=== PATIENT | female | born 1995 | race Caucasian/White ===

== ENCOUNTER → 2017-08-18 16:55 | Outpatient (CLI) | payer MEDICAID, SELFPAY ==
[2017-08-18 22:10] LABS: Group B Strep DNA By PCR Negative (Negative); Internal Control PASS; Probe Check PASS; Specimen Processing Control PASS
== END ==
PROVIDERS: Visit Provider Obstetrics & Gynecology
DX: Z36.85 Encounter for antenatal screening for Streptococcus B (principal)
CPT/HCPCS: 87081; 87653

== ENCOUNTER 2017-09-05 15:35 | Outpatient (CLI) | payer MEDICAID, SELFPAY ==
[2017-09-05 16:02] VITALS: BMI 29.0
[2017-09-05 16:36] LABS: ROM Internal Control Test YES-OK TO RESULT pt. (Internal QC); ROM Patient Test Negative (Negative)
--- NOTE | 2017-09-06 04:19 | OB.TRI.NOTE ---
History of Present Illness Date of Service: 09/05/17 Was patient seen by the physician?: No Reason For Visit: R/O LABOR Date of Service: 09/05/17 Final ALLYN Source: US <20 weeks Gestational age: 39 weeks History of Present Illness: 39 week intrauterine reports with complaints of contractions and unsure if spontaneous rupture of membranes. Contractions every 7 minutes. Repeat scheduled for September 06. Home Medications Medication Instructions Recorded Pnv No.122/Iron/Folic Acid 1 each PO DAILY 02/23/17 [ Multi Tablet] Ranitidine HCl [Zantac 75] 75 mg PO DAILY 08/31/17 Allergies No Known Allergies Allergy (Verified 08/31/17 14:05) NST - FHR Rate Baby A NST Reactive:: Yes Impression/Plan Approximately 39 week intrauterine with false labor. ROM test negative. Reactive nonstress test. No cervical change after observation. Will discharge to home.
== END 2017-09-05 17:05 | disposition home or self-care (01) ==
LOC: WPOUT 16:00 → WP 16:01
PROVIDERS: Visit Provider Obstetrics & Gynecology
DX: O47.1 False labor at or after 37 completed weeks of gestation (principal); Z3A.39 39 weeks gestation of pregnancy
CPT/HCPCS: 59025; 59050; 84112; 99218; G0378

== ENCOUNTER 2017-09-06 05:13 | Inpatient (IN) | payer MEDICAID, SELFPAY ==
[2017-08-31 13:28] VITALS: BMI 29.2
[2017-09-06] VITALS (23 sets, daily range): BP systolic 99–117; BP diastolic 42–76; PULSE 63–100; RESP 16–18; TEMP 36.2–36.8; O2SAT 96–100
[2017-09-06] MEDS: Lactated Ringers 1,000 ML 999 ML IV (05:30)
[2017-09-06 06:19] LABS: Absolute Neutrophil Count 7.6 X10^3/uL (2.0-7.7); Basophil# 0.01 X10^3/uL; Basophil% 0.1 % (0-1); Eosinophil# 0.12 X10^3/uL; Eosinophils% 1.1 % (0-5); Hematocrit 38.1 % (37-47); Hemoglobin 12.7 g/dl (12.0-15.0); Mean Corp Hgb Conc 33.3 g/gl (32-36); Mean Corpuscular Hgb 27.7 pg (27.0-32.0); Mean Platelet Vol. 8.4 fl (6.2-12.0); Monocyte# 0.79 X10^3/uL; Monocyte% 7.2 % (0-10); Neutrophil % 69.5 % (47-70); Platelet Count 180 K/mm3 (150-450); RBC Distribution Width CV 13.7 % (11.6-14.6); RBC Distribution Width SD 41.3 fl (35.1-43.9); Red Blood Count 4.59 M/mm3 (4.2-5.4); White Blood Count 10.9 K/mm3 (4.4-11.0)
[2017-09-06 06:20] LABS: POSITIVE COUNT NO; POSITIVE DIFFERENTIAL NO; POSITIVE MORPHOLOGY NO
[2017-09-06] MEDS: Lactated Ringers 1,000 ML 150 ML IV (06:28)
[2017-09-06] MEDS: Sodium Citrate/Citric Acid 30 ML UDC PO (06:28)
[2017-09-06] MEDS: Cefazolin 2 GM in 0.9% Normal Saline 100 ML IV (07:22)
--- NOTE | 2017-09-06 07:26 | OP.PCM_ITS ---
Operative Report Date of Procedure: 09/06/17 Surgeon: Abelardo Marcelo MD, FACOG Welding Operator: BREANNE Ceja Anesthesia: Fransico Farrell MD Anesthesia: Spinal with Duramorph Pre-op Diagnosis: - -Prior Section Post-Op Diagnosis: - -Prior Section Procedure: Repeat Low Transverse Cervical Caesarean Section Findings: Viable male with Apgars of 8/9 in occiput anterior presentation with clear amniotic fluid and normal three-vessel placenta. Some small adhesions between the omentum and the anterior abdominal wall. Indication: This is a 22-year-old who presents for her third at 39+ weeks gestation. care has otherwise been uneventful except that the patient has a history of hepatitis C but her viral load is negative. The patient has been counseled regarding the risk and indications of this procedure including the possibility of bleeding infection and injury to surrounding structures such as bowel bladder. All questions were answered. Procedure: Patient was taken to the operating room where after spinal anesthesia was placed, the patient was prepped and draped in usual sterile fashion and a Walsh catheter was placed. The abdomen was entered through the patient's prior Pfannenstiel incision and peritoneum was entered bluntly. After developing a bladder flap on the lower uterine segment a low transverse incision was made on the uterus and head was easily delivered onto the operative field the nose mouth and oropharynx were bulb suctioned. Subsequently a viable male was born with Apgars of 8/9. The was noted to cry move all extremities vigorously on the operative field. The umbilical cord was doubly clamped and ligated and infant handed to the nursery personnel who were present for the delivery. Placenta was delivered and noted to be 3 vessels and normal. Uterus was exteriorized and remaining placental tissue was removed. The uterus was then closed in 2 layers first with running locked 0 Vicryl suture followed by a second imbricating layer with 0 Vicryl suture. 0 Vicryl suture was then used in a horizontal mattress interrupted fashion to affect final hemostasis of the uterine incision line. Normal fallopian tubes and ovaries were visualized and the uterus was returned to the pelvis. Hemostasis was noted and rectus abdominis muscles were reapproximated in the midline with interrupted Number 0 Vicryl suture in a horizontal mattress fashion. Fascia was closed with running Number 1 PDS Strata fix suture. Subcutaneous tissue was irrigated with copious amouts of saline solution and then closed with running 3-0 Vicryl suture. Skin was closed with 4-0 monocryl suture in a running subcuticular fashion. Steri strips, telfa, and tape were placed across the incision. The patient tolerated the procedure well and was taken to the recovery room in satisfactory condition. Sponge, needle, and instrument counts were all reportedly correct. EBL was less than 500 cc. Ancef 2 gms IV was given prior to the procedure. Spicemen to Pathology: None Complications: None
--- NOTE | 2017-09-06 07:27 | DCINST_ITS ---
Discharge Diet: No Restrictions Discharge Activity: May not drive while taking narcotic pain medications., May Shower, May Take a Tub Bath May resume sexual activity in: 4-6 weeks Lifting Restrictions: 20 pounds Additional Activity Instructions:: Nothing in the vagina for 4-6 weeks. You may return to work/school in 6 weeks. Call your doctor if your incision/area has: Continuous Slow Oozing, Sudden Increased Bleeding, Increased Pain/ Swelling, Increased Redness, Foul Smelling Discharge Call your doctor if you observe: Fever of 101 or Higher, Inability to urinate, Inability to have a bowel movement, Using more than one pad per hour Additional Instructions: If you experience any of the following, contact your healthcare provider. * Bleeding that soaks a pad every hour for 2 hours * Unrelieved incision or abdominal pain * Swelling, redness, discharge or bleeding from your incision or episiotomy site * Your incision begins to separate * Problems urinating (including inability to urinate or burning while urinating) . * Visual changes * Severe headache * Flu-like symptoms * Pain or redness in one of both of your breasts * Pain, warmth, tenderness or swelling in your legs, especially the calf area * Frequent nausea and vomiting * Symptoms of depression or anxiety If you experience any of the following, call 911 or go to the nearest Emergency Room. * Chest pain * Problems breathing * Seizure activity * Partial or complete paralysis of a body part, slurred speech, weakness or drooping of the face, or a sudden inability to walk or hold your balance Allergies/Adverse Reactions: Allergies No Known Allergies Allergy (Verified 08/31/17 14:05) Medications to take at Discharge Pnv No.122/Iron/Folic Acid [ Multi Tablet] 1 each PO DAILY 02/23/17 Ranitidine HCl [Zantac 75] 75 mg PO DAILY 08/31/17 Docusate Sodium [Colace] 100 mg PO BID PRN PRN #60 cap 09/06/17 Oxycodone [Oxyir] 5 mg PO Q6H PRN PRN 7 Days #20 tab 09/06/17 The following prescriptions were given: Oxycodone [Oxyir] 5 mg PO Q6H PRN PRN 7 Days #20 tab PRN Reason: Severe Pain (-03/16) Docusate Sodium [Colace] 100 mg PO BID PRN PRN #60 cap PRN Reason: Constipation Follow-Up: Call to make an appointment with your doctor for an incision check in 1-2 weeks. You will also need a 6 week post- follow up appointment. Please Follow Up With: Abelardo Marcelo MD - [phone] When: Call to make an appointment for an incision check in 2 weeks. Primary Care Physician: Abelardo Marcelo MD [Primary Care Provider] -
[2017-09-06] MEDS: Oxytocin 30 units/NS 500 ml 30 UNITS/500 ML IV.SOLN 167 UNITS IV (07:40)
[2017-09-06 07:44] LABS: Amphetamine Urine VISTA NEGATIVE (<1000 ng/mL); Barbiturate Urine VISTA NEGATIVE (< 200 ng/mL); Benzodiazepine Urine VISTA NEGATIVE (< 200 ng/mL); Cocaine Urine VISTA NEGATIVE (< 300 ng/mL); Ecstacy Urine VISTA NEGATIVE (< 500 ng/mL); Methadone Urine VISTA NEGATIVE (< 300 ng/mL); PCP Urine VISTA NEGATIVE (< 25 ng/mL); THC Urine VISTA NEGATIVE (< 50 ng/mL); Vista UDS pH Range 7
[2017-09-06] MEDS: Lactated Ringers 1,000 ML 100 ML IV ×3 (08:00→20:00)
[2017-09-06] MEDS: Methylergonovine 0.2 MG/ML Ampul IM (09:29)
[2017-09-06] MEDS: Famotidine 20 MG Tablet 10 MG PO (10:02)
[2017-09-06] MEDS: Ketorolac 30 MG/ML Syringe IV ×2 (13:13→18:47)
[2017-09-06] MEDS: 0.9% Saline Lock 10 ML Syringe IV (13:13)
[2017-09-06] MEDS: Cefazolin 1 GM/50 ML BAG IV ×2 (14:59→23:00)
[2017-09-07] VITALS (7 sets, daily range): BP systolic 94–124; BP diastolic 53–63; PULSE 68–89; RESP 16–18; TEMP 36.1–36.8; O2SAT 96–98
[2017-09-07] MEDS: 0.9% Saline Lock 10 ML Syringe IV ×5 (00:47→20:25)
[2017-09-07] MEDS: Ketorolac 30 MG/ML Syringe IV ×4 (00:47→19:34)
[2017-09-07] MEDS: Acetaminophen 500 MG Tablet 1000 MG PO ×2 (03:48→12:22)
[2017-09-07] MEDS: Lactated Ringers 1,000 ML 100 ML IV (06:44)
[2017-09-07 08:16] LABS: Hematocrit 30.2 % (37-47); Mean Corp Hgb Conc 33.1 g/gl (32-36); Mean Corpuscular Hgb 28.2 pg (27.0-32.0); Mean Corpuscular Volume 85.1 fL (81-99); Mean Platelet Vol. 8.4 fl (6.2-12.0); Platelet Count 160 K/mm3 (150-450); RBC Distribution Width CV 13.7 % (11.6-14.6); RBC Distribution Width SD 41.5 fl (35.1-43.9); Red Blood Count 3.55 M/mm3 (4.2-5.4); Scan Indicated on CBC? Y/N NO; White Blood Count 10.3 K/mm3 (4.4-11.0)
[2017-09-07] MEDS: Famotidine 20 MG Tablet 10 MG PO (10:06)
--- NOTE | 2017-09-07 10:37 | NURSING ---
Pt c/o headache that becomes more severe when standing. Giving pain medication when able. Pt laying flat for relief. MD made aware, no new orders. Anesthesia made aware by Shweta MATRI and plan to evaluate pt. Pt and family aware of plan.
--- NOTE | 2017-09-07 11:56 | CASEMGMT ---
Social Work Received notice from bowling pin refinisher on 09-06-17 after morning huddle that this patient/mother of baby (MOB) would benefit from social work consult. Consult related to MOB reportedly living in a prison, maternal history of substance use, and baby to be have LEXX monitoring for reported first trimester drug use (heroin and cocaine). Chart has been reviewed. This signwriter familiar with MOB from previous delivery at [facility]. Presented to MOB's room. MOB sleeping soundly in room, even after delinquency prevention social worker knocked. MOB's mother, Viji present in room and rocking . Viji reports MOB has been having headaches and MOB just got to sleep. acetone recovery worker agreed to return later to talk with MOB. Plan: Social work to follow. Will attempt to see MOB at a later time, after MOB has gotten some rest. -GIN Austin, INDUSTRIAL X RAY OPERATOR
[2017-09-07] MEDS: Senna/Docusate Sodium 1 Tablet PO (13:28)
--- NOTE | 2017-09-07 15:00 | NURSING ---
Reviewed and agreed with Student RN charting.
[2017-09-07] MEDS: oxyCODONE 5 MG Tablet PO ×2 (15:06→20:32)
--- NOTE | 2017-09-07 17:00 | CASEMGMT ---
Social Work Note Labor and Delivery Unit Social Work Assessment completed. Refer to documentation below for further details. Date of Referral: 09-06-17 Referred By: Verbal consult from Dr. Joseph Reason for Referral: Mother of baby (JOLEEN) reportedly living in a correction, maternal history of substance use, and baby to be have LEXX monitoring for reported first trimester drug use (heroin and cocaine). Date of Intervention: 09/07/2017 Time of Intervention: 1430 History obtained from: Medical record and patient/MOB Household composition: JOLEEN hutson has lived at [facility] for the last 7-8 months, since February 2017. JOLEEN lives with other women going through substance use recovery. MOB plans to take , Catrachito Lawrence to this facility at time of . Patient's parent/guardian status: MOB reports uncertainty as to paternity of this . There is a name listed in the care record, Grant Parekh, though during this assessment MOB informs this freelance writer that Serg was just a name that came to MOB as a possibility. MOB reports however, that is really unsure to paternity. MOB denies any intent or desire to seek out paternity testing. MOB does have two older children who have the same father, Jake Platt. MOB reports to have no contact or involvement with Jake. Minor Children: Traci Platt (born 07/2013) Alejo Platt (born 08/29/2014) Catrachito. MOB reports Traci is in the permanent custody of paternal grandparents. MOB reports Traci has been with the grandparents since Traci was about 1 years old. MOB reports to have no contact with her daughter. MOB reports Alejo is in the temporary custody of MOBs sister. MOB reports has just filed a motion to get back custody of Alejo. MOB reports to see Alejo often, as Alejo lives with MOBs sister and MOBs mother/Alejos maternal grandmother. Medical History: JOLEEN G3, P2 to 3 after delivering this admission. MOB with care starting around 10 weeks gestation. born via repeat caesarian section. Infant born weighing 6 pounds 8 ounces. Apgars 8 and 9 at 1 and 5 minutes of life respectively. Educational Status: MOB completed through the 10th or 11th grade. MOB reports goal to get GED classes done before leaving [facility]. Financial Status: MOB reports to have aguilar assistance as this time. Infant Supplies: MOB reports to have needed supplies including bassinet, crib, car seat, swing, clothing, diapers, wipes, bottles, formula. Childcare/Caregiver(s): MOB plans to be primary caregiver, and when MOB goes to counseling or work MOB will either have MOBs mom or daycare assist with care of Catrachito. Transportation: MOB reports MOBs mom or Yani, a staff person at [facility], are biggest sports. MOB also has a counselor and a counselor at [facility]. Programs/Agencies Involved: [facility] for food, medical, and aguilar assistance. [facility]. [facility] for counseling and residential treatment (at [facility]). MOB reports on waiting list for [facility], anticipating will be approved in the next month or two. Children Services/Legal Issues: MOB denies current legal charges, but is on probation. care record indicates MOB was incarcerated in detention at one point during this . MOB denies any current or recent legal issues. MOB denies any current involvement with children services, reporting it has been a long time since MOB has had a case with children services. Record indicates history of children services related to marijuana use. MOB had a voluntary case during the time that Alejo was born. Behavioral Health Issues: MOB denies any history of depression, anxiety, or other mental health diagnosis. MOB denies any history of suicidal ideation, plan, or intent; denies past attempts. Talked with MOB about a [facility] about an ED visit indicating suicidal ideation. MOB reports was not suicidal at that time, that JOLEENs sister through [facility] was suicidal based on some comments MOB wrote but that in reality MOB was never suicidal. No reports or indication of any thoughts, plans, intent to harm others. MOB denies any depression history. Educated MOB to depression, touching on risk for such, encouraging MOB to talk with someone should symptoms arise. MOB with history of marijuana usage. 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 MOB denies alcohol use or abuse, meth use, or other illicit drug use history. MOB reports sober date is 12-30-2016. MOB reports stopped using right after finding about . MOB denies any use of medication assisted treatment, such as suboxone, to assist with recovery from heroin. MOB denies any caffeine use. MOB reports one pack per day of tobacco during this . MOB with negative drug screens on 02-15-17 and 09-06-17. Babys urine is negative. Meconium is pending. Highest LEXX score so far a 5. Family/Social Stressors: MOB a single mother, non-custody of older 2 children, currently living in a residential treatment facility for substance use/abuse issues. Father of is unknown. MOB has just filed a motion to get custody back of 2nd child, but has no contact with oldest child. Support Systems: MOB reports that MOBs mom Viji Oleary is a strong support, as well as Yani from [facility]. MOB reports counselor Katia at [facility] is another support. ASSESSMENT: MOB cooperative with social work visit, conversing with social work job titles, giving to the point answers initially. MOB did expand on some answers as conversation went on, though usually when not directly related to children/custody issues. For example, MOB spontaneously shared intent to get GED, and plan to stay at [facility] until able to secure an apartment; social work had to ask direct and pointed questions about change of custody, which MOB did answer without issue. MOB was cooperative overall. MOB with fair eye contact, often looking away from social work job titles. Important to note that MOB does report to have a headache, so has not been feeling well today. MOB affect constricted, would smile, but not much range in emotion shown. MOB denies a depressed mood, reports to be happy about the baby, to love the baby, and to feel a connection. MOB did smile when talking about the baby. MOB did hold the baby when baby started to cry, though social work job titles picked baby up as MOB has not been out of bed today due to the headache. Overall, MOB reports to have needed supplies to care for infant, to have support at home going, and that has been in close contact with [facility] about plans for discharge. granite worker inquired whether this freelance writer needs to contact [facility], but MOB reports has been in close contact so no need indicated for social work to assist at this time. PLAN: MOB and baby continue with hospitalization. Baby is getting LEXX scoring due to reports of first trimester use of drugs. Will continue to follow this family during hospital stay. MOB was given a general resources list of social service agencies assisting with parent support, counseling, and in-kind help. MOB given handouts on Help Me Grow, Moms support group, tips on soothing baby/shaken baby prevention, and safe sleeping. -MARYLIN Austin, FILTER PLANT OPERATOR
--- NOTE | 2017-09-07 19:17 | PCM.PN.OB ---
Subjective: Patient without complaints. Tolerating diet well. Positive flatus. Has a spinal headache. Pain well controlled otherwise. - Physical Exam Vital Signs AF, VSS Temp Pulse Resp BP Pulse Ox 98.2 F 79 18 102/56 L 97 09/07/17 14:55 09/07/17 14:55 09/07/17 14:55 09/07/17 14:55 09/07/17 14:55 Oxygen Delivery Method Room Air Weight: 164 lb 14.492 oz Body Mass Index (BMI) 29.2 Intake and Output for Last 24 Hours 09/05/17 09/06/17 09/07/17 23:59 23:59 23:59 Intake Total 5252 / 5252 2680 / 2680 Output Total 1450 / 1450 2125 / 2125 Balance 3802 / 3802 555 / 555 Laboratory Tests Past 24 Hrs 09/07/17 07:50 WBC 10.3 RBC 3.55 L Hgb 10.0 L Hct 30.2 L MCV 85.1 MCH 28.2 MCHC 33.1 RDW 13.7 RDW Differential 41.5 Plt Count 160 MPV 8.4 Wound is clean, dry, intact. Good urine output. Hemoglobin okay. Medical Necessity - Tobacco Use Smoking Status: Current some day smoker Assessment/Plan Doing well. Continuing present care. Anesthesia aware of spinal headache and anticipate blood patch tomorrow if condition continues.
[2017-09-07] MEDS: Lactated Ringers 1,000 ML 999 ML IV (20:26)
--- NOTE | 2017-09-07 21:18 | NURSING ---
This RN has not observed interaction between mother and infant. Infant in crib in corner of room and patient's mother tends to when cries. At 2030 when this RN medicating patient, began crying and this RN asked if had recently eaten. Patient's mother stated that he had and she would let him cry a little harder before picking him up.
[2017-09-08] MEDS: oxyCODONE 5 MG Tablet PO ×3 (00:33→14:08)
--- NOTE | 2017-09-08 01:35 | NURSING ---
Late entry: At 2214, Dr. Farrell in room to do blood patch. Blood patch drawn by this RN and then given by Dr. Farrell at 2223. Pt tolerated procedure well. One hour post procedure, patient states that she feels so much better.
[2017-09-08 02:24] VITALS: BP 102/62; PULSE 70; RESP 16; TEMP 36.2
[2017-09-08] MEDS: 0.9% Saline Lock 10 ML Syringe IV ×2 (02:27→08:10)
[2017-09-08] MEDS: Ketorolac 30 MG/ML Syringe IV ×2 (02:27→08:11)
--- NOTE | 2017-09-08 04:57 | NURSING ---
Dr. Farrell notified that patient states that headache has returned after feeling better from blood patch. orders received.
[2017-09-08] MEDS: Acetaminophen/Butalbital/Caffe 1 Tablet 2 TABLET PO ×4 (05:10→21:16)
[2017-09-08] MEDS: Caffeine 200 MG Tablet 400 MG PO (05:12)
[2017-09-08 08:17] VITALS: BP 123/84; PULSE 71; RESP 18; TEMP 36.3; O2SAT 98
--- NOTE | 2017-09-08 09:51 | PCM.PN.OB ---
Subjective: Patient without complaints. Tolerating diet well. Positive flatus. Headache much better after anesthesia placed blood patch. Needing some Fioricet to help with her headaches. - Physical Exam Vital Signs AF, VSS Temp Pulse Resp BP Pulse Ox 97.4 F L 71 18 123/84 H 98 09/08/17 08:17 09/08/17 08:17 09/08/17 08:17 09/08/17 08:17 09/08/17 08:17 Oxygen Delivery Method Room Air Weight: 164 lb 14.492 oz Body Mass Index (BMI) 29.2 Intake and Output for Last 24 Hours 09/06/17 09/07/17 09/08/17 23:59 23:59 23:59 Intake Total 5252 / 5252 2680 / 2680 Output Total 1450 / 1450 2125 / 2125 Balance 3802 / 3802 555 / 555 Medical Necessity - Tobacco Use Smoking Status: Current some day smoker Assessment/Plan Doing well. Will release to home with routine instructions if baby is able to go.
[2017-09-08] MEDS: Senna/Docusate Sodium 1 Tablet PO (10:32)
[2017-09-08] MEDS: Famotidine 20 MG Tablet 10 MG PO (12:59)
[2017-09-08 13:30] VITALS: BP 113/78; PULSE 73; RESP 16; O2SAT 96
--- NOTE | 2017-09-08 16:16 | CASEMGMT ---
Social Work Labor and Delivery Unit Summary: Per report from registration coordinator mother of baby (MOB) upset today regarding LEXX protocol and baby not being up for discharge today. MOB upset as baby had a high LEXX score overnight. Received call from MOB's case resolution specialist at [facility], Yani Palumbo. Yani advocating for MOB, relaying that MOB has been doing well with the [facility] program, all drug screens have come back negative since entering [facility], and staff have not had any issues/concerns with MOB's behaviors or interactions, that MOB has been appropriate each time MOB has left on a pass and returned. Yani reports MOB rarely goes on passes, and most passes are to go and see MOB's older son. Yani reports plan to come to hospital later today to see MOB, and Yani confirms that will provide MOB transportation home. Yani also confirms that needed supplies are in place for baby at discharge to [facility]. This data analyst report writer went to MOB's room to see how MOB is doing. MOB reports Okay, I guess. MOB clarifies that is not happy about staying longer or the baby receiving a high LEXX score, but also voiced understanding that people are doing jobs, and that MOB cannot change the protocols. MOB hopeful that will be able to discharge tomorrow. MOB reports is just trying to accept information given and move on. MOB discussed frustrations with feeling like being judged at times, but also acknowledges that this is MOB's personality to be guarded and suspicious of others intentions. MOB discussed that does not like to share so many personal details with staff, that MOB understands as a social services analyst this data analyst report writer has to ask personal questions but MOB does not believe other staff have the right to ask MOB personal questions. This data analyst report writer attempted to explore that some conversation with other staff could be to help build rapport and connections, but if MOB does not want to talk about such issues then MOB can voice this to staff and try to work through this. MOB discussed that feels MOB would not be nice, so choosing not to speak up and be assertive. MOB voiced that knows needs to work on being assertive, but also knows self and usually needs to calm down before speaking, or may say something MOB would regret later. MOB voiced appreciation for being heard and allowed to vent frustrations. MOB apologized to this data analyst report writer for not being real talkative yesterday, but MOB acknowledged that was suspicious of this data analyst report writer and whether this data analyst report writer would twist MOB's words around. At the end of conversation, MOB denies any needs or concerns at present, and hopeful that tomorrow baby will be okay to discharge. Assessment: MOB maintains that has not used any drugs since December 2016 and is having a hard time understanding why baby had a high score overnight, other than baby was being a normal baby and having a hard moment. MOB listened respectfully when social services analyst educated to protocols and standardization of testing and LEXX scoring, that babies do have fluctuations of scores and this is in part why scoring is done over time rather than making decisions based on one or two scores. There have been no positive drug screens this write can appreciate during this or at delivery. [facility] staff report that all of MOB's drugs screens have been negative, that staff have had no concerns with MOB while a client in the treatment program. [facility] staff confirms that MOB has needed supplies for baby at [place]. MOB more talkative today as compared to yesterday. MOB held good eye contact, did not turn away from social services analyst when subject of older children were broached. MOB did acknowledge that doesn't like to talk about details of other children, to which this data analyst report writer informed MOB this was quite clear to this data analyst report writer based on MOB's reactions and body language yesterday. MOB with appropriate affect, though mood irritable based on MOB spending most of the time talking about frustrations. Motor activity and speech within normal limits. MOB showed this data analyst report writer a picture of older son Alejo, as well as more willing to talk about paternity questions regarding baby. MOB held baby in a cradle hold, rocked baby intermittently and when baby was sleeping for some time placed baby in the crib. MOB was gentle and appropriate in mannerisms with baby. MOB able to identify support people whom MOB trusts and can talk to for support, including Yani at [facility] and [facility]'s sponsor. MOB thanked this data analyst report writer for being present today when MOB did not having anyone else to talk to, though MOB admits to still have reservations about this data analyst report writer (and all staff), but that did trust this data analyst report writer with the information that MOB was willing to talk about today. Interventions: Supportive listening and reflection offered. Validation of feelings and education on why protocols in place. Explored support systems MOB has in place. Updated Dr. Peterson to this data analyst report writer's conversation with [facility] staff, that reports have been positive and supporting MOB's assertion of nonusage since MOB's time at [facility]. Plan: MOB and infant to discharge to [facility] where MOB will have support from counselors and case management. Will continue monitoring for meconium drug screen results. -GIN Austin, FORGEMAN HELPER
[2017-09-08] MEDS: Ibuprofen 600 MG Tablet PO (19:43)
[2017-09-08 19:48] VITALS: BP 117/87; PULSE 63; RESP 18; TEMP 36.4; O2SAT 99
[2017-09-09] VITALS (14 sets, daily range): BP systolic 91–136; BP diastolic 64–88; PULSE 59–102; RESP 16–18; TEMP 36.1–37.1; O2SAT 95–99
[2017-09-09] MEDS: Ibuprofen 600 MG Tablet PO (02:33)
[2017-09-09] MEDS: Acetaminophen/Butalbital/Caffe 1 Tablet 2 TABLET PO ×2 (05:30→12:00)
--- NOTE | 2017-09-09 09:43 | PCM.PN.OB ---
Subjective: Patient without complaints except for mild spinal headache. Discharge from yesterday canceled because baby needed to stay. Otherwise doing well. - Physical Exam Vital Signs Temp Pulse Resp BP Pulse Ox 98.2 F 78 16 110/78 97 09/09/17 08:00 09/09/17 08:00 09/09/17 08:00 09/09/17 08:00 09/09/17 08:00 Oxygen Delivery Method Room Air Weight: 164 lb 14.492 oz Body Mass Index (BMI) 29.2 Intake and Output for Last 24 Hours 09/07/17 09/08/17 09/09/17 23:59 23:59 23:59 Intake Total 2680 / 2680 Output Total 2125 / 2125 Balance 555 / 555 Medical Necessity - Tobacco Use Smoking Status: Current some day smoker Assessment/Plan Doing well. Will release to home with routine instructions. Follow-up 2/6 weeks.
--- NOTE | 2017-09-09 09:45 | PCM.DC.BLA ---
Discharge Summary Date of Admission: 09/06/17 Date of Discharge: 09/09/17 Summary: Admission diagnosis: Term intrauterine for repeat Discharge diagnosis: Term intrauterine for repeat Procedure: Repeat low transverse cervical section HPI: Uneventful care. PE: Unremarkable. Hospital Course: The patient is a 22 year old who presented to L and D at 39+ weeks gestation for repeat . No complications of the surgery. Postoperatively she did well demonstrating a stable HGB on POD 1 and bowel fxn by POD 3 at which time it was felt she was ready for discharge. The only issue was a spinal headache for which anesthesia applied a blood patch. Homegoing Instruction: She was instructed not to drive for several days or if using narcotic pain medication, not to put anything in the vagina for 4 weeks, not to lift >25 lbs for 6 weeks and to call the office for an appointment in 2 weeks and 6 weeks. Discharge Medications: She was given a prescription for Oxycodone and Colace and also plans to use Aleve or Motrin or Tylenol at home as needed for pain and constipation. She was also given a prescription for Fioricet for her spinal headache.
[2017-09-09] MEDS: Famotidine 20 MG Tablet 10 MG PO (10:19)
--- NOTE | 2017-09-09 10:32 | NURSING ---
pt is declining talking to anesthesia prior to leaving related to headache, headache is not as bad as it was yesterday, pt declines being sent home with oxyir rx, dr escobar aware. pt is up in room walking around with no complaints, denies dizziness, blurred vision, epigastric pain
--- NOTE | 2017-09-09 12:00 | CASEMGMT ---
Social Work Labor and Delivery Unit Received update from staff that mother of baby (MOB) to be discharged today sometime. Received a call from [facility] Pad Making Machine Operator inquiring in status of MOB and baby regarding discharge. Called Yani from [facility] that will be sometime today. Yani reports has spoken to MOB as well. Yani will coordinate with MOB about discharge time and transportation. This selling underwriter then received a call from a concerned person by the name of Alicia wanting to provide information about MOB. Uncertain who this person is to MOB, this was not shared with this selling underwriter. This selling underwriter did not provide any information, neither confirming or denying that MOB was even at this hospital. Caller indicated to know that MOB has had a baby boy and is still at the hospital or recently discharged. Caller reported that MOB has had 2 older children removed from custody. Caller voiced to have serious concern for safety of baby, as caller voiced belief that MOB has been using drugs during this . Caller voiced that MOB has put self in risky situations with men and that caller is unsure whether MOB has safe housing. This selling underwriter only thanked caller for concerns but provided no other information. Caller reported that has already called children services, speaking to September, and that September is awaiting a call from the hospital. Plan: MOB and baby to discharge back to [facility] residential facility today, accompanied by [facility] staff. This selling underwriter will go ahead and call [facility] based on history with children services and caller's voiced concerns regarding MOB's alleged actions this and course of hospital treatment pertinent to a children services referral, however will also provide strengths seeming to be present for this MOB as well. -GIN Austin, PAMPHLET DISTRIBUTOR
[2017-09-09] MEDS: Lactated Ringers 500 ML 999 ML IV (14:15)
--- NOTE | 2017-09-09 14:18 | NURSING ---
1400 blood patch done [facility] anesthesia, pt tolerated well. iv started per demarcus adams, first stick 10cc blood removed, second stick 10 cc blood removed and put to hep lock for 1000 cc bolus of lr, started. pt instructed to lie flat for hr after procedure and to not lift anything heavier than baby for 24 hrs. voiced understanding
--- NOTE | 2017-09-09 16:55 | NURSING ---
headache resolved prior to discharge, no distress noted. discharge at 1620
--- NOTE | 2017-09-10 15:57 | CASEMGMT ---
Social Work Note Labor and Delivery Unit Called [facility] ([facility]) intake department. Initiated referral with September, but upon hearing who this sign writer letterer or painter calling about this sign writer letterer or painter transferred to Chino Munoz in the intake department. Chino is the assigned make ready worker to this family, as a case was recently opened. Referral due to: JOLEEN has history with Children services for other children, with MOB losing custody of those older children. Reported this sign writer letterer or painter's call with concerned person by the name of Alicia on 09-09-17, that unsure of how Alicia may know JOLEEN, but relayed concerns relayed by Alicia to this sign writer letterer or painter. Reported that MOB shared with this sign writer letterer or painter that has recently filed a motion to get custody back of son Alejo, currently in the custody of JOLEEN's sister. Reported that MOB had negative drug screens in February 2017 and then at time of delivery, that baby's urine drug screen was negative, meconium is pending. Reported LEXX scoring for baby, that scores relatively low, with the exception of one score, and that MOB as quite upset by this as MOB maintained that has a sober date of any drugs as of 12-30-16. Reported that MOB had admitted to crack use prior to knowledge, and heroin sometime before that. Reported a nursing note about baby crying and the infant's maternal grandmother stating that would let the baby cry harder before picking the baby up; up to that point MOB had had limited interactions, though this sign writer letterer or painter reported to Chino that MOB did have a spinal headache the first couple of days which could have impacted MOB's level of interactions with baby. This sign writer letterer or painter observed MOB holding baby appropriately, after headache was treated. Reported that MOB has been at [facility] residential treatment facility since February 2017, that MOB is close to moving out on own, that [facility] staff reported to this sign writer letterer or painter that MOB has had clean drug screens for the treatment facility, and has been appropriate in interactions there. No voiced concerns by [facility] Staff about MOB recovery or interactions with others. Reported that MOB has reported to have all needed supplies for baby, and Yani from [facility] had reported there would be formula at the facility for baby. Reported that MOB and baby were discharged yesterday to [facility] and seemed to have a safe and reliable place to return to with baby at this time, though is due to transition out to own apartment in the near future. No other social services manager requested or indicated for MOB. Will monitor for meconium drug screen results and report results to [facility] as indicated. -GIN Austin, CENTRAL STERILE TECHNICIAN
== END 2017-09-09 16:20 | disposition home or self-care (01) | DRG 370 ==
PROVIDERS: Admitting Provider Obstetrics & Gynecology; Visit Provider Obstetrics & Gynecology
DX: O34.211 Maternal care for low transverse scar from previous cesarean delivery (principal); O47.1 False labor at or after 37 completed weeks of gestation; Z37.0 Single live birth; Z3A.39 39 weeks gestation of pregnancy; Z86.19 Personal history of other infectious and parasitic diseases; G97.1 Other reaction to spinal and lumbar puncture; Y84.4 Aspiration of fluid as the cause of abnormal reaction of the patient, or of later complication, without mention of misadventure at the time of the procedure; F17.200 Nicotine dependence, unspecified, uncomplicated
CPT/HCPCS: 59025; 59050; 80307; 84112; 85025; 85027; 86850; 86900; 99218; J7120; A4216; G0378; J2405

== ENCOUNTER 2018-07-17 15:51 | Emergency (ER) | payer MEDICAID, SELFPAY ==
[2018-07-17 15:52] VITALS: BP 128/88; PULSE 107; RESP 14; TEMP 36.8; O2SAT 97; BMI 22.8
--- NOTE | 2018-07-17 16:10 | ED.DCSUM_ITS ---
- ER Visit Summary Date of Service: 07/17/18 Chief Complaint: Dental pain History of Present Illness: The patient is a 22 F with dental pain for 4 days. The pain is in her left maxillary molar. No other symptoms, fevers, swelling. Physical Examination: Afebrile and vital signs unremarkable. Tooth #16 tender to palpation. No definite abscess or swelling. Gums normal. Face and skin unremarkable. No trismus. No tongue elevation. No lymphadenopathy. No meningeal signs. Airway patent. Test Results: None indicated Emergency Department Course and Treatment: Patient treated with Pen-Vee K and naproxen. Follow-up with dental. Treatment Plan: As above Disposition: Discharge Impression:. Dental pain This note was generated with [employer] dictation software. It may contain incorrect words, spelling, and punctuation that were not noted in review of the chart prior to signing ED Disposition - Plan for ED Patient: Referrals: Care Physician,No Primary [Primary Care Provider] -
--- NOTE | 2018-07-17 16:10 | ED.DEP ---
ED Disposition - Plan for ED Patient: Instructions: ED Tooth Pain Prescriptions: Naproxen [Naprosyn] 500 mg PO BID #20 tab Penicillin V Potassium 500 mg PO 4X/DAY #40 tab
[2018-07-17] MEDS: Penicillin Vk 250 MG Tablet 500 MG PO (16:13)
== END 2018-07-17 16:28 | disposition home or self-care (01) ==
LOC: ED 16:25
PROVIDERS: Emergency Provider Emergency Medicine
DX: K08.89 Other specified disorders of teeth and supporting structures (principal); Z87.19 Personal history of other diseases of the digestive system; Z72.0 Tobacco use
CPT/HCPCS: 99283

== ENCOUNTER 2018-08-16 19:10 | Emergency (ER) | payer MEDICAID, SELFPAY ==
[2018-08-16 19:11] VITALS: BP 111/63; PULSE 112; RESP 16; TEMP 36.7; O2SAT 99; BMI 23.8
--- NOTE | 2018-08-16 21:06 | ED.RN ---
2nd triage call at 2046. no response.
== END 2018-08-16 21:13 | disposition left against medical advice (07) ==
LOC: ED 21:10
PROVIDERS: Emergency Provider Emergency Medicine
DX: R11.2 Nausea with vomiting, unspecified (principal); Z53.21 Procedure and treatment not carried out due to patient leaving prior to being seen by health care provider

== ENCOUNTER 2018-10-19 12:57 | Emergency (ER) | payer MEDICAID, SELFPAY ==
[2018-10-19 12:58] VITALS: BP 118/77; PULSE 112; RESP 17; TEMP 36.2; O2SAT 96; BMI 22.6
--- NOTE | 2018-10-19 13:26 | ED.VIS.DENTA ---
History of Present Illness Chief Complaint: Dental Informant: Patient Onset: Yesterday Context: Gradual Onset Timing: Continuous Quality: ache Location: left maxillary molar Current Severity: Severe Maximum Severity: Severe Worsened by: chewing Associated Symptoms: - - none. no fevers, swelling, discharge. Narrative: Chronically broken tooth that has hurt before and now is hurting again without any traumatic etiology of at this time. No systemic symptoms. Took some NSAIDs but they did not help and now she is out of them, a previous naproxen prescription. Prior similar symptoms: Yes Past Medical History - Allergies and Home Meds Allergies/Adverse Reactions: Allergies No Known Allergies Allergy (Verified 10/19/18 12:58) Primary Care Physician: Nicki Rubalcava [Primary Care Provider] - Smoking Status: Current some day smoker Drugs: None Review of Systems General: Denies: Chills, Fever ENT: Reports: - - toothache. Denies: Bilateral ear pain, Rhinorrhea Gastrointestinal: Denies: Nausea, Vomiting Skin: Denies: Rash, Abscess Physical Exam Vital Signs/Narrative: Vital Signs Temp Pulse Resp BP Pulse Ox 10/19/18 12:58 97.2 F L 112 H 17 118/77 96 Inital Vital Signs reviewed: Yes General: Well nourished, Well developed Head: Normocephalic, Atraumatic ENT: Moist mucous membranes, No rhinorrhea, - - Tender tooth #16. Difficult to visualize, but probably a small defect posteriorly. No gingivitis, bleeding, discharge, or obvious associated abscess. No trismus.. Negative for: Sinus tenderness Neck: Supple, No lymphadenopathy, Nontender Neurological: Alert, Oriented x3, Cranial nerves II-XII grossly intact, Normal Strength, Normal Sensation, Normal Gait Psychological: Normal affect, Normal Mood Diagnostic/Tx/Re-eval - Medical Decision Making No drainable collection. I think antibiotics for early dental infection would be appropriate as well as dental follow-up. We will give her a short prescription for some tramadol as well. ED Disposition - Plan for ED Patient: Disposition: Home or Assisted Living Diagnosis: Odontalgia Instructions: ED Tooth Pain Prescriptions: traMADol [Ultram] 50 mg PO Q4H PRN PRN 2 Days #12 tablet PRN Reason: Pain Naproxen [Naprosyn] 500 mg PO BID PRN #20 tablet Amoxicillin 500 mg PO TID #30 tablet Referrals: Zach Rubalcavaa Startzman [Primary Care Provider] - 3-5 Days
--- NOTE | 2018-10-19 20:57 | ED.RN ---
[facility] pharmacist called asking about this pts rx that she received from Dr. Cardoso. Upon review of chart, medications were sent to [facility], pts rx on record. Reviewed correct rx with pharmacist and they will be filled at [facility].
== END 2018-10-19 13:42 | disposition home or self-care (01) ==
PROVIDERS: Emergency Provider Emergency Medicine
DX: K08.89 Other specified disorders of teeth and supporting structures (principal); S02.5XXA Fracture of tooth (traumatic), initial encounter for closed fracture; X58.XXXA Exposure to other specified factors, initial encounter; Y93.9 Activity, unspecified; Y92.9 Unspecified place or not applicable; F17.200 Nicotine dependence, unspecified, uncomplicated
CPT/HCPCS: 99282

== ENCOUNTER 2019-02-23 23:02 | Emergency (ER) | payer MEDICAID, SELFPAY ==
[2019-02-23 23:03] VITALS: BP 126/89; PULSE 120; RESP 16; TEMP 36.4; O2SAT 100; BMI 21.9
--- NOTE | 2019-02-23 23:08 | CT_ITS ---
STUDY: CT BRAIN WITHOUT CONTRAST REASON FOR EXAM: Female, 23 years old. Found unresponsive. RADIATION DOSAGE (If Supplied By Facility): CTDIvol = ( 44.99 ) mGy, DLP = ( 745.49 ) mGycm TECHNIQUE: Transaxial CT imaging of the brain was performed without administration of intravenous contrast material. Individualized dose optimization techniques were used for this CT. COMPARISON: No relevant priors. FINDINGS: Normal soft tissue structures. Normal calvarium. Normal size ventricles and extra-axial spaces for the patient's age. Normal white matter tracts of the cerebral hemispheres. Normal basal ganglia and thalami. Normal brainstem. Normal cerebellum. There is no intracranial hemorrhage. There are no findings of an acute ischemic infarction. There is partial opacification of the ethmoid, sphenoid and visualized left maxillary sinuses. There is partial opacification of the left mastoid air cells present. CT/Brain/Head without Contrast IMPRESSION: No acute intracranial process. Partial opacification of the ethmoid, sphenoid and left maxillary sinuses consistent with a history of sinusitis. Partial opacification of the left mastoid air cells consistent with a history of mastoiditis. Electronically Signed: Tita Zimmer MD at 23:39 EDT Tel , Service support ,
--- NOTE | 2019-02-23 23:13 | ED.DCSUM_ITS ---
- ER Visit Summary Date of Service: 02/23/19 Chief Complaint: Overdose History of Present Illness: The patient is a 23 F presenting after accidental overdose. Patient was found unresponsive by her boyfriend. EMS was called. She was given Narcan intranasally and then IV. She awoke following the Narcan. She had one episode of vomiting in route. She complains of headache. She is unsure if she hit her head. She states she thought she was snorting Xanax. Her boyfriend believes that it was heroin. She states she has not used heroin in years. Denies other drug use. Denies suicidal ideation. Physical Examination: Vitals are stable. Patient is afebrile. Alert no acute distress. HEENT exam is unremarkable. No sinus tenderness. No mastoid tenderness. Neck is supple. Nontender Lungs are clear and equal bilaterally. Heart is regular tachycardic Abdomen is soft nontender nondistended. Extremities are unremarkable. Skin is warm and dry. No focal neurologic deficit. Remainder of exam is unremarkable. Emergency Department Course and Treatment: She was given IV fluids, Zofran, Tylenol. CT head shows no acute intracranial process. Patient is feeling much improved on reevaluation. Her heart rate is 95. She continues to deny suicidal ideation. She will be discharged. Advised follow-up with primary care physician. Advised return to ED for worsening complaints. Disposition: Discharge home Impression: Accidental heroin overdose This note was generated with [employer] dictation software. It may contain incorrect words, spelling, and punctuation that were not noted in review of the chart prior to signing ED Disposition - Plan for ED Patient: Instructions: OVERDOSE, Opiate Referrals: Nicki Rubalcava [NON-STAFF] -
[2019-02-23] MEDS: 0.9% Normal Saline 1,000 ML 999 ML IV (23:14)
[2019-02-23] MEDS: Ondansetron 4 MG/2 ML Vial IV (23:15)
--- NOTE | 2019-02-24 00:06 | ED.DEP ---
ED Disposition - Plan for ED Patient: Instructions: OVERDOSE, Opiate Referrals: [facility],Nicki Malik [NON-STAFF] -
[2019-02-24 00:29] VITALS: BP 110/91; PULSE 99; RESP 14; O2SAT 100
== END 2019-02-24 00:52 | disposition home or self-care (01) ==
PROVIDERS: Emergency Provider Emergency Medicine
DX: T40.1X1A Poisoning by heroin, accidental (unintentional), initial encounter (principal); R51 Headache; Z72.0 Tobacco use
CPT/HCPCS: 70450; 96361; 96374; 99285; J7030; J2405

== ENCOUNTER 2019-05-06 00:12 | Emergency (ER) | payer MEDICAID, SELFPAY ==
[2019-05-06 00:13] VITALS: BP 125/74; PULSE 90; RESP 18; TEMP 36.7; O2SAT 98; BMI 21.2
[2019-05-06] MEDS: Smz/Tmp Ds Tablet 1 TABLET PO (01:58)
--- NOTE | 2019-05-06 03:07 | ED.VIS.GEN ---
History of Present Illness Chief Complaint: Abscess Informant: Patient, Significant Other Onset: Days - 5 Context: Gradual Onset Timing: Continuous Quality: sore Location: right axilla Current Severity: Severe Maximum Severity: Severe Worsened by: palpation Relieved by: nothing Associated Symptoms: scant yellow discharge earlier today Narrative: Never had this before. Shaves her axillae. No systemic symptoms or fevers. Not a diabetic. Not an IV drug user. Past Medical History - Allergies and Home Meds Allergies/Adverse Reactions: Allergies No Known Allergies Allergy (Verified 05/06/19 00:15) Primary Care Physician: Care Physician,No Primary [Primary Care Provider] - Past Medical History: None Surgical History: no surgical history Lives: Spouse/ Significant Other Smoking Status: Current every day smoker Drugs: None Review of Systems General: Denies: Chills, Fever, Sweats Musculoskeletal: Reports: Extremity Pain - Right axilla only Skin: Reports: Abscess. Denies: Wounds Neurological: Denies: Headache, Weakness, Numbness Physical Exam Vital Signs/Narrative: Vital Signs Temp Pulse Resp BP Pulse Ox 05/06/19 00:13 98.0 F 90 18 125/74 H 98 Inital Vital Signs reviewed: Yes General: Well nourished, Well developed, No Acute Distress Head: Normocephalic, Atraumatic Extremities: No edema, Tenderness - Right axilla only. See below. Skin: Normal color, No rash, No Trauma, - - Right anterior axillary abscess approximately 3-4 cm in diameter, pointing, indurated, erythematous but without surrounding cellulitis. No spontaneous discharge. Quite tender to palpation. No lymphangitis. No palpable axillary lymphadenopathy although exam is limited due to pain in the abscess area. Neurological: Alert, Oriented x3, Cranial nerves II-XII grossly intact, Normal Strength, Normal Sensation, Normal Gait Psychological: Normal affect, Normal Mood Diagnostic/Tx/Re-eval - Medical Decision Making Patient was given oxycodone after incision and drainage of the abscess which yielded quite a bit of purulent bloody discharge. She was empirically treated with Bactrim and given a prescription for that and oxycodone, given appropriate instructions for supportive care and follow-up and reasons to return. Has no PCP, referred to the next doctor on the unassigned list. Procedures Procedure(s): Right axilla cutaneous abscess complex incision and drainage. Prepped and draped in a sterile fashion, locally anesthetized with a total of 7 cc of plain 1% lidocaine, after isopropanol prep. Was then prepped with chlorhexidine, incised centrally with a #11 blade, which yielded a large amount of purulent material along with minor bleeding. The purulent material and plug were gently expressed, the abscess was deloculated with hemostats, and irrigated with 30 cc of sterile saline. It was packed with quarter inch sterile strip gauze and dressed with bacitracin. Tolerated well no complications. ED Disposition - Plan for ED Patient: Disposition: Home or Assisted Living Diagnosis: Cutaneous abscess of right axilla Instructions: ABSCESS, Incision and Drainage, MRSA SKIN INFECTION, Suspected or Confirmed Prescriptions: Sulfamethoxazole/Trimethoprim [Bactrim Ds Tablet] 1 ea PO BID #20 tab Transmission Status: Pending to [place] [id number] Oxycodone HCl/Acetaminophen [Percocet 5/325] 1 tablet PO Q4H PRN 2 Days #10 tablet PRN Reason: Pain Transmission Status: Sent to [place] [id number] Referrals: Abbe Cook DO [STAFF PHYSICIAN] - 3-5 Days if not improving Additional Instructions: -Change dressing 2 or 3 times in the first 24-48 hours, then as needed. Use antibiotic ointment against the wound when changing dressing. -As long as the affected area is not worsening, pull the gauze out in approximately 48 hours and discard, and place a new dressing with antibiotic ointment against the affected area. -Take antibiotic as prescribed until completely gone. -May add ibuprofen as needed for pain to the prescription if needed. -May shower/bathe in soapy water, but do not submerge in any other water/liquid.
[2019-05-06] MEDS: oxyCODONE 5 MG Tablet PO (03:12)
[2019-05-06 03:26] VITALS: BP 125/60; PULSE 100; RESP 18; O2SAT 98
== END 2019-05-06 03:27 | disposition home or self-care (01) ==
PROVIDERS: Emergency Provider Emergency Medicine
DX: L02.411 Cutaneous abscess of right axilla (principal); F17.200 Nicotine dependence, unspecified, uncomplicated
CPT/HCPCS: 10060; 99283

== ENCOUNTER 2022-12-31 20:41 | Emergency (ER) | payer MEDICAID, SELFPAY ==
[2022-12-31 20:42] VITALS: BP 127/77; PULSE 94; RESP 18; TEMP 36.3; O2SAT 99; BMI 28.1
--- NOTE | 2022-12-31 21:41 | CM.ED ---
Social Work Note Referral Source: case find Referral Reason: no PCP SW met with patient and introduced herself and role as [facility] Casing Fluid Tender. Patient lying on hospital bed and agreeable to speak with SW. SW inquired about patient's insurance and current PCP. Patient verified insurance and reports no current PCP. SW provided patient with a list of local PCPs in network with patient's insurance and accepting new patients. Patient was receptive towards list and voiced no other needs. SW remains available if needs arise. Nu Garber MSW, ANGÉLICA
[2022-12-31 22:13] LABS: Mucous, Urine 0 SEEN /hpf (<or=2+)
[2022-12-31 22:19] LABS: Color, Urine Yellow (Yellow); Glucose, Dipstick Normal (Normal); Ketone-Dipstick 5 mg/dl (Negative); Leukocyte Esterase-Dipstick 25 /ul (Negative); Nitrite-Dipstick Positive (Negative); Occult Blood-Urine 250 /ul (Negative); Protein-Dipstick 30 mg/dl (Negative); Specific Gravity, Urine 1.025 (1.002-1.030); Urine Bilirubin Dipstick Negative (Negative); Urine Clarity Sl. Cloudy (Clear); Urine Urobilinogen 1 mg/dl (Normal)
[2022-12-31 22:26] LABS: White Blood Cells 5-10 SEEN /hpf (0-5)
[2022-12-31 22:27] LABS: Red Blood Cells-Urine 0-5 SEEN /hpf (0-5); Squamous Epithelial Cells - UA 0-5 SEEN /hpf (5-10)
[2022-12-31 22:29] LABS: Bacteria 2+ /hpf (None Seen)
[2022-12-31 22:41] LABS: Absolute Lymphocyte Count 2.55 X10^3/uL (0.83-4.51); Absolute Neutrophil Count 2.9 X10^3/uL (2.0-7.7); Basophil# 0.02 X10^3/uL; Basophil% 0.3 % (0-1); Eosinophil# 0.05 X10^3/uL; Eosinophils% 0.8 % (0-5); Hematocrit 41.2 % (37-47); Hemoglobin 13.5 g/dL (12.0-15.0); Lymphocyte # 2.55 X10^3/ul (0.83-4.51); Lymphocyte % 43.2 % (19-41); Mean Corp Hgb Conc 32.8 g/dL (32-36); Mean Corpuscular Volume 85.5 fL (81-99); Mean Platelet Vol. 8.8 fl (6.2-12.0); Monocyte# 0.35 X10^3/uL; Monocyte% 5.9 % (0-10); NRBC Flagged by Analyzer 0 % (0-5); Neutrophil # 2.92 X10^3/uL (2.7-7.7); Neutrophil % 49.6 % (47-70); Platelet Count 209 K/mm3 (150-450); RBC Distribution Width CV 12.4 % (11.6-14.6); RBC Distribution Width SD 38.5 fl (35.1-43.9); Red Blood Count 4.82 M/mm3 (4.2-5.4); White Blood Count 5.9 K/mm3 (4.4-11.0)
[2022-12-31 22:41] LABS: Anion Gap 6 (5-15); BUN 9 mg/dL (7-18); BUN/Creat Ratio 11.3 RATIO (10-20); Chloride 106 mmol/L (98-107); Creatinine, Serum 0.79 mg/dL (0.55-1.02); EST Glomerular Filtration Rate 91 mL/min (>60); Est Glom Filt Rate - Afr Amer 111 mL/min (>60); Estimated Creatinine Clearance 83.85 ml/min; Glucose 87 mg/dL (74-106); Potassium 3.8 mmol/L (3.5-5.1); Sodium Level 136 mmol/L (136-145)
[2022-12-31 22:49] LABS: International Normalized Ratio 1.1; Prothrombin Time (Protime)PT. 14.6 SECONDS (11.7-14.9)
[2022-12-31 22:50] LABS: Internal QC Validated? YES +Cl - CLEAR BKGD; Partial Thromboplast Time 26.5 Seconds (24.1-36.2); Pregnancy, Serum, hCG Quali. NEGATIVE Negative
[2022-12-31] MEDS: Smz/Tmp Ds Tablet 1 TABLET PO (23:48)
--- NOTE | 2023-01-01 01:09 | EDS_ITS ---
HPI HPI - Female History of Present Illness Chief Complaint: Vag Bleeding Informant: patient Pain Pain: Positive for Pelvic Pain Onset: Month(s) (1) Context: Gradual Onset Timing: Intermittent Quality: Positive for Cramping Location: Suprapubic Worsened by: - (Nothing) Relieved by: - (Nothing) Bleeding Issue: Positive for Vaginal bleeding Onset: Month(s) (1) Context: Gradual Onset Timing: Intermittent Current Severity: Similar to period Maximum Severity: Similar to period Associated Symptoms Associated Symptoms: Positive for Dysuria and Irregular Period; Negative for Frequency or Urgency Narrative Narrative: Patient presents with vaginal bleeding that has been waxing and waning over the last month. Patient states she has had intermittent cramping over this time as well. Patient states nothing makes it better and nothing makes it worse. Patient states she had the Nexplanon implant placed approximately 5 years ago. Patient is unsure if this is still effective and is causing her bleeding. Patient is unsure if she is . Patient does admit to some dysuria. Patient denies any fevers or chills. PFSH PFSH no medical history Home Medications sulfamethoxazole 800 mg-trimethoprim 160 mg tablet 1 ea PO BID #6 tabs 12/31/22 [Rx Last Taken Unknown] Allergy/AdvReac Type Severity Reaction Status Date / Time No Known Allergies Allergy Verified 12/31/22 20:42 no surgical history Social History Smoking Status: Current every day smoker tobacco type: cigarettes ROS ROS ED Constitutional Constitutional ED: Denies chills or fever(s) Eyes Eyes: Denies blurry vision or change in vision ENT ENT ED: Denies rhinorrhea or sore throat Cardiovascular Cardiovascular: Denies chest pain or palpitations Respiratory/Chest Respiratory/Chest: Denies cough or dyspnea Gastrointestinal Gastrointestinal: Reports abdominal pain; Denies nausea or vomiting Genitourinary Genitourinary ED: Reports dysuria; Denies hematuria Musculoskeletal Musculoskeletal: Denies back pain or neck pain Integumentary Denies abscess or rash Neurologic Neurologic: Denies headache(s) or weakness Allergic/Immunologic Allergic/Immunologic ED: Denies mouth swelling or urticaria EXAM Physical Exam Const Vital Signs: 12/31/22 20:42 Temperature 97.3 F L Temperature Source Temporal Pulse Rate 94 Respiratory Rate 18 Blood Pressure 127/77 H Blood Pressure Mean 93 Pulse Ox 99 Positive well nourished and well developed General Appearance ED: well developed HEENT Reports moist mucous membranes Neck supple and no JVD Resp normal respiratory effort and clear to auscultation bilaterally Cardio regular rate, regular rhythm and no murmurs GI normal to inspection, nondistended, normoactive bowel sounds and non-tender Palpation: soft Extremity normal to inspection General Extremety ED: Negative for edema or tenderness General Extremity: Negative for edema Neuro oriented x3, CN's II-XII intact bilaterally and no sensory deficits noted Sensorium / Orientation: alert Motor Exam: strength 5/5 throughout Psych mental status grossly normal Skin no rashes or lesions noted MDM MDM MDM Narrative Medical decision making narrative: Differential diagnosis includes ectopic , urinary tract infection, dysmenorrhea, coagulopathy, and anemia. CBC will be obtained to assess for anemia and leukocytosis. Basic metabolic profile will be obtained to assess for electrolyte abnormality and renal function. Serum hCG will be obtained to assess for . PT was INR and PTT will be obtained to assess for coagulopathy. He urine culture will be obtained to assess for urinary tract infection. Lab Data Attestation: I reviewed the patient's lab results. Lab results narrative: CBC was reviewed and was within normal limits. PT with INR and PTT were reviewed and were within normal limits. Basic metabolic profile was reviewed and was within normal limits. Urinalysis was reviewed. Leukocyte esterase was 25 with 5-10 white blood cells and positive nitrites. Occult blood was 250 with 0-5 red blood cells. There is 2+ bacteria. Serum hCG was reviewed and was negative. Labs: Laboratory Results - last 24 hr 12/31/22 12/31/22 12/31/22 22:06 22:20 22:20 WBC Cancelled Corrected WBC Cancelled RBC Cancelled Hgb Cancelled Hct Cancelled MCV Cancelled MCH Cancelled MCHC Cancelled RDW Std Deviation Cancelled RDW Coeff of Silverio Cancelled Plt Count Cancelled MPV Cancelled Immature Gran % (Auto) Cancelled Neut % (Auto) Cancelled Lymph % (Auto) Cancelled [place] % (Auto) Cancelled Eos % (Auto) Cancelled Baso % (Auto) Cancelled Absolute Neuts (auto) Cancelled Absolute Lymphs (auto) Cancelled Total Counted Cancelled Neutrophils % (Manual) Cancelled Band Neutrophils % Cancelled Lymphocytes % (Manual) Cancelled Monocytes % (Manual) Cancelled Eosinophils % (Manual) Cancelled Basophils % (Manual) Cancelled Metamyelocytes % Cancelled Myelocytes % Cancelled Promyelocytes % Cancelled Blast Cells % Cancelled Plasma Cell % (Manual) Cancelled Other Cells % Cancelled Nucleated RBC % Cancelled Nucleated RBCs/100 WBC Cancelled Differential Comment Cancelled Diff Path Review Cancelled Hypersegmented Neuts Cancelled Atypical Lymphocytes Cancelled Reactive Lymphocytes Cancelled Smudge Cells Cancelled Toxic Granulation Cancelled Toxic Vacuolation Cancelled Dohle Bodies Cancelled Riya Rods Cancelled Platelet Estimate Cancelled Plt Morphology Comment Cancelled RBC Morphology Cancelled Cancelled Polychromasia Cancelled Hypochromasia Cancelled Poikilocytosis Cancelled Basophilic Stippling Cancelled Anisocytosis Cancelled Microcytosis Cancelled Macrocytosis Cancelled Spherocytes Cancelled Sickle Cells Cancelled Target Cells Cancelled Tear Drop Cells Cancelled Ovalocytes Cancelled Stomatocytes Cancelled [place] Bodies Cancelled [place] Cells Cancelled Bite Cells Cancelled Crenated Cell Cancelled Acanthocytes (Spur) Cancelled Rouleaux Cancelled Schistocytes Cancelled PT INR APTT Sodium 136 Potassium 3.8 Chloride 106 Carbon Dioxide 24.0 Anion Gap 6 BUN 9 Creatinine 0.79 Estim Creat Clear Calc 83.85 Est GFR (MDRD) Af Amer 111 Est GFR (MDRD) Non-Af 91 BUN/Creatinine Ratio 11.3 Glucose 87 Calcium 9.0 Serum , Qual Urine Color Yellow Urine Clarity Sl. Cloudy Urine pH 6.0 Ur Specific [place] 1.025 Urine Protein 30 H Urine Glucose (UA) Normal Urine Ketones 5 H Urine Occult Blood 250 H Urine Nitrite Positive H Urine Bilirubin Negative Urine Urobilinogen 1 H Ur Leukocyte Esterase 25 H Urine RBC 0-5 SEEN Urine WBC 5-10 SEEN Ur Squamous Epith Cells 0-5 SEEN Urine Bacteria 2+ Urine Mucus 0 SEEN 12/31/22 22:30 WBC 5.9 Corrected WBC RBC 4.82 Hgb 13.5 Hct 41.2 MCV 85.5 MCH 28.0 MCHC 32.8 RDW Std Deviation 38.5 RDW Coeff of Silverio 12.4 Plt Count 209 MPV 8.8 Immature Gran % (Auto) 0.200 Neut % (Auto) 49.6 Lymph % (Auto) 43.2 H [place] % (Auto) 5.9 Eos % (Auto) 0.8 Baso % (Auto) 0.3 Absolute Neuts (auto) 2.9 Absolute Lymphs (auto) 2.55 Total Counted Neutrophils % (Manual) Band Neutrophils % Lymphocytes % (Manual) Monocytes % (Manual) Eosinophils % (Manual) Basophils % (Manual) Metamyelocytes % Myelocytes % Promyelocytes % Blast Cells % Plasma Cell % (Manual) Other Cells % Nucleated RBC % 0 Nucleated RBCs/100 WBC Differential Comment Diff Path Review Hypersegmented Neuts Atypical Lymphocytes Reactive Lymphocytes Smudge Cells Toxic Granulation Toxic Vacuolation Dohle Bodies Riya Rods Platelet Estimate Plt Morphology Comment RBC Morphology Polychromasia Hypochromasia Poikilocytosis Basophilic Stippling Anisocytosis Microcytosis Macrocytosis Spherocytes Sickle Cells Target Cells Tear Drop Cells Ovalocytes Stomatocytes [place] Bodies [place] Cells Bite Cells Crenated Cell Acanthocytes (Spur) Rouleaux Schistocytes PT 14.6 INR 1.1 APTT 26.5 Sodium Potassium Chloride Carbon Dioxide Anion Gap BUN Creatinine Estim Creat Clear Calc Est GFR (MDRD) Af Amer Est GFR (MDRD) Non-Af BUN/Creatinine Ratio Glucose Calcium Serum , Qual NEGATIVE Urine Color Urine Clarity Urine pH Ur Specific [place] Urine Protein Urine Glucose (UA) Urine Ketones Urine Occult Blood Urine Nitrite Urine Bilirubin Urine Urobilinogen Ur Leukocyte Esterase Urine RBC Urine WBC Ur Squamous Epith Cells Urine Bacteria Urine Mucus Treatment and Re-Evaluation Narrative: Patient is feeling better on reevaluation. Patient was advised of her findings. Patient was given a dose of Bactrim here. Patient was given a prescription for Bactrim. Patient was given a note for work. Patient was instructed to follow- up with her primary care physician in 5 to 7 days. Patient was instructed return if worse in any way. Patient understood and was agreeable with the plan. All questions were answered. Discharge Plan Triage Chief Complaint: Vag Bleeding ED Provider: Ben Knox Dx/Rx/DC Orders Clinical Impression: Urinary tract infection, Dysmenorrhea Instructions: ED MENSTRUAL CRAMPING, ED Cystitis Female Adult Prescriptions: Continued sulfamethoxazole-trimethoprim 1 EACH tablet 1 ea PO BID Qty: 6 0RF Stand Alone Forms: ED Work / School Excuse Primary Care Provider: Care Physician,No Primary Referrals: Renny Canada MD [Med Staff - Active Staff] - 5-7 Days Care Physician,No Primary [Primary Care Provider] - Disposition Disposition: Home, Self Care Discharge Date/Time: 12/31/22 23:50
== END 2022-12-31 23:50 | disposition home or self-care (01) ==
PROVIDERS: Emergency Provider Emergency Medicine; Visit Provider Emergency Medicine
DX: N93.9 Abnormal uterine and vaginal bleeding, unspecified (principal); N39.0 Urinary tract infection, site not specified; F17.210 Nicotine dependence, cigarettes, uncomplicated; N94.6 Dysmenorrhea, unspecified; Z79.3 Long term (current) use of hormonal contraceptives
CPT/HCPCS: 80048; 81001; 84703; 85025; 85610; 85730; 87077; 87086; 87088; 99283; A4216